=== PATIENT | female | born 1995 | race Caucasian/White ===

== ENCOUNTER 2020-10-07 15:46 | Outpatient (CLI) | payer OTHER, SELFPAY ==
[2020-10-07 17:08] LABS: SPREG INTERNAL CONTROL Positive; Serum Qual hCG Negative
== END 2020-10-07 15:47 | disposition home or self-care (01) ==
LOC: ANHLAB 15:48
PROVIDERS: PCP Physician Assistant; Visit Provider Internal Medicine
DX: Z34.90 Encounter for supervision of normal pregnancy, unspecified, unspecified trimester (principal); Z3A.00 Weeks of gestation of pregnancy not specified
CPT/HCPCS: 36415; 84703

== ENCOUNTER 2021-08-15 11:34 | Outpatient (CLI) | payer OTHER, SELFPAY ==
[2021-08-15 12:15] LABS: Add Urine Microscopic? YES; Appearance Urine Cloudy (Clear); Bacteria Urine Trace /hpf; Bilirubin Urine Negative (Negative); Blood Urine 3+ (Negative); Budding Yeast Urine Present /hpf; Color Urine Yellow (Yellow); Glucose Urine UA Negative (Negative); Ketones Urine Negative (Negative); Leukocyte Esterase Ur 3+ LEU/UL (NEGATIVE); Mucus Urine Rare /lpf; Nitrate Urine Negative (Negative); Protein Urine Negative (Negative); RBC Urine 51-75 /hpf (0-2); Specific Grav Ur 1.006 (1.001-1.035); Squamous Epithelial Cell Urine Rare /hpf (Few); Urobilinogen Urine Negative mg/dL (<2.0); WBC Urine >75 /hpf (0-3)
== END 2021-08-15 11:35 | disposition home or self-care (01) ==
PROVIDERS: PCP Physician Assistant; Visit Provider Physician Assistant
DX: R30.0 Dysuria (principal)
CPT/HCPCS: 81001; 87077; 87086; 87088; 87186

== ENCOUNTER 2023-04-24 22:20 | Outpatient (RCR) | payer OTHER, SELFPAY ==
[2023-04-24 23:13] VITALS: BP 113/56; PULSE 65
== END 2023-07-23 23:59 | disposition home or self-care (01) ==
LOC: ANHOBOP 22:20
PROVIDERS: PCP Physician Assistant; Visit Provider Student in an Organized Health Care Education/Training Program
DX: O36.8120 Decreased fetal movements, second trimester, not applicable or unspecified (principal); Z3A.26 26 weeks gestation of pregnancy
CPT/HCPCS: 59025

== ENCOUNTER 2023-11-06 11:24 | Outpatient (CLI) | payer OTHER, SELFPAY ==
--- NOTE | 2023-11-13 11:53 | WPDHOLTEREM ---
Holter/Event Monitor Holter/Event Monitor Date of procedure: 11/13/23 Holter/Event Procedure: 48 Hr Holter Monitor Diagnosis: Bradycardia Indications: Bradycardia Image/Tracing Quality: Adequate. Total analysis time of 47 hours and 59 minutes. Findin. Predominant rhythm is sinus rhythm with an average heart rate of 69 beats per minute. The minimum heart rate was 40 beats per minute (which occurred during sleeping hours). The maximum heart rate was 154 beats per minute (which was sinus tachycardia). 2. No evidence of atrial fibrillation, SVT, pauses, heart block or ventricular tachycardia. 3. PAC burden is <0.01%. 4. PVC burden is <0.01%. 5. No patient reported symptoms.
== END 2023-11-06 11:25 | disposition home or self-care (01) ==
LOC: ANHCARD 11:25
PROVIDERS: PCP Internal Medicine; Visit Provider Internal Medicine
DX: R00.1 Bradycardia, unspecified (principal)
CPT/HCPCS: 93225; 93226